=== PATIENT | male | born 2000 | race Caucasian/White ===

== ENCOUNTER 2019-01-22 16:38 | Emergency (ER) | payer OTHER, SELFPAY ==
[2019-01-22 16:30] VITALS: BP 149/99; PULSE 55; RESP 16; TEMP 36.8; O2SAT 95; BMI 33.4
--- NOTE | 2019-01-22 16:39 | RAD_ITS ---
STUDY: X-RAY - RIGHT HAND REASON FOR EXAM: Male, 18 years old. Trauma. Impaled by woody. Pain. TECHNIQUE: History view(s) of the hand. COMPARISON: None. FINDINGS: Evaluation of the fingers is limited as they are flexed throughout the exam. There is no fracture or dislocation identified in the right hand. There is a faintly visible foreign body entering the soft tissues overlying to the first metacarpal. Once the foreign body enters the soft tissues, it is not well delineated from the adjacent soft tissues, however there appears to be approximately at least 1 cm of penetration into the soft tissues. RAD/Hand Min 3 Views IMPRESSION: Faintly visible foreign body entering the soft tissues overlying to the first metacarpal. Once the foreign body enters the soft tissues, it is not well delineated from the adjacent soft tissues, however there appears to be approximately at least 1 cm of penetration into the soft tissues. Evaluation of the fingers is limited as they are flexed throughout the exam. No fracture or dislocation identified in the right hand. Electronically Signed: Rosalio Mckeon, at 17:03 EST Tel , Service support ,
[2019-01-22] MEDS: Morphine 4 MG/ML Syringe IV (16:45)
[2019-01-22] MEDS: Cefazolin 1 GM/50 ML BAG IV (16:56)
[2019-01-22] MEDS: HYDROmorphone 1 MG/ML Syringe IV ×2 (17:19→18:58)
[2019-01-22 17:20] VITALS: BP 136/89; PULSE 55; RESP 16; O2SAT 99
--- NOTE | 2019-01-22 17:58 | ED.DCSUM_ITS ---
- ER Visit Summary Date of Service: 01/22/19 Chief Complaint: Foreign body right hand History of Present Illness: The patient is a [address] Lindo. He is right-hand dominant. His tetanus is up-to-date. He was using a table saw when a piece of wood kicked out of this and into his right hand. He is a sharp pain is 10 on 10 in severity. Is worsened by movement and relieved by rest. He complains of paresthesias in his thumb. Physical Examination: Vitals: Stable. Afebrile. General: Well-nourished and well-developed. Head: Normocephalic atraumatic. Neck: Supple, no lymphadenopathy. No JVD. Nontender. Cardiovascular: Regular rate and rhythm. No murmurs. Respiratory: No respiratory distress. Clear to auscultation bilaterally. Abdominal: Soft, nontender, nondistended, normal bowel sounds. No guarding, rebound, or peritoneal signs. Back: Nontender. Extremities: There is a large chunk of wood that is approximately 2 cm in diameter that enters the thenar eminence and tracks underneath the skin and you can feel the tip at the medial portion of the hyperthenar eminence. He has decreased sensation to light touch in his thumb. He has pain with any range of motion of his fingers. There is less than 2-second capillary refill. Skin: Normal color, no rash. Neurologic: Alert and oriented ?3. Cranial nerves II through XII are intact. Normal strength and sensation. Psych: Normal affect. Test Results: Clinical Impression(s) from Imaging Studies Hand X-Ray 01/22/19 16:39 IMPRESSION: Faintly visible foreign body entering the soft tissues overlying to the first metacarpal. Once the foreign body enters the soft tissues, it is not well delineated from the adjacent soft tissues, however there appears to be approximately at least 1 cm of penetration into the soft tissues. Evaluation of the fingers is limited as they are flexed throughout the exam. No fracture or dislocation identified in the right hand. Electronically Signed: Rosalio Craneyeny, at 17:03 EST Tel , Service support , Emergency Department Course and Treatment: Patient was given Dilaudid IV. He was given Ancef IV. He was discussed with Dr. Sy who asked that he be transferred to a hand surgeon. Treatment Plan: The patient was discussed with [facility]. I discussed him with the trauma surgeon Dr. Zhao who asked that he be sent to the emergency department to have the hand surgeon see him there. Disposition: Transferred in improved condition. Impression: 1. Foreign body right hand. This note was generated with [employer] dictation software. It may contain incorrect words, spelling, and punctuation that were not noted in review of the chart prior to signing ED Disposition - Plan for ED Patient: Disposition: [facility] Referrals: Belgica Garvey NP-C [Primary Care Provider] -
[2019-01-22 19:05] VITALS: BP 148/89; PULSE 64; RESP 16; TEMP 36.8; O2SAT 98
== END 2019-01-22 19:02 | disposition short-term general hospital (02) ==
LOC: ED 17:00
PROVIDERS: Emergency Provider Emergency Medicine; Family Provider Nurse Practitioner Family; PCP Nurse Practitioner Family
DX: S60.551A Superficial foreign body of right hand, initial encounter (principal); W45.8XXA Other foreign body or object entering through skin, initial encounter; Y93.9 Activity, unspecified; Y92.9 Unspecified place or not applicable
CPT/HCPCS: 73130; 96361; 96365; 96375; 96376; 99285